=== PATIENT | male | born 1970 | race Caucasian/White ===

== ENCOUNTER → 2020-11-08 | Outpatient (CLI) | payer OTHER ==
--- NOTE | 2020-11-08 09:36 | RAD ---
EXAM: Lumbar spine, 2 views. HISTORY: Pain. COMPARISON: None. FINDINGS: 2 views of the lumbar spine are obtained. There is no listhesis. The vertebral bodies are n ormal in height and the disc spaces are preserved. There is minimal multilevel endplate remodeling. T here is facet arthropathy at the lumbosacral junction. IMPRESSION: 1. Degenerative change primarily at the lumbosacral junction. 2. No acute osseous finding. Electronically signed by: Kadi Thomas MD (11/08/2020 9:34 AM) [id number]
--- NOTE | 2020-11-08 09:37 | RAD ---
EXAM: Chest, 2 views. HISTORY: Emphysema. COMPARISON: None. FINDINGS: 2 views of the chest are obtained. There is lingular or interstitial infiltrate or pleural parenchymal scarring. There is no consolidation, pleural effusion or pneumothorax. The heart is janusz l in size. IMPRESSION: Lingular infiltrate or scarring. Correlation with prior studies may be useful if availabl e. Electronically signed by: Kadi Thomas MD (11/08/2020 9:34 AM) [id number]
== END ==
LOC: PF 08:13
PROVIDERS: ATTEND Anesthesiology Pain Medicine
DX: M47.817 Spondylosis without myelopathy or radiculopathy, lumbosacral region (principal); J43.9 Emphysema, unspecified
CPT/HCPCS: 71046; 72100; 94060; 94640; 94664

== ENCOUNTER → 2021-01-24 | Outpatient (CLI) | payer OTHER | LOC: PF 09:55 | PROVIDERS: ATTEND Surgery | DX: Z02.71 Encounter for disability determination (principal); J44.9 Chronic obstructive pulmonary disease, unspecified | CPT/HCPCS: 94060; 94640; 94729; 94664 ==